=== PATIENT | female | born 1970 | race Two or more races ===

== ENCOUNTER 2018-12-08 22:54 | Emergency (ER) | payer MEDICAID ==
[~2018-12-08] VITALS: Ht 172.7 cm; Wt 86.2 kg
[2018-12-08 23:18] VITALS: BP 143/83
[2018-12-08] MEDS ORDERED: KETOROLAC TROMETHAMINE INJ 60 MG/2 ML VIAL IM ONE (23:41)
[2018-12-08] MEDS ORDERED: DEXAMETHASONE SOD PHOSPHATE 10 MG/ML VIAL ONE (23:41)
--- NOTE | 2018-12-08 23:51 | NUR ---
Patient discharged to home in stable condition. Written and verbal after care instructions given. Patient verbalizes understanding of instruction.
[2018-12-09] MEDS ORDERED: DEXAMETHASONE SOD PHOSPHATE 4 MG/ML VIAL IM ONE
[2018-12-09] MEDS ORDERED: KETOROLAC TROMETHAMINE INJ 60 MG/2 ML VIAL IM ONE
== END 2018-12-08 23:51 | disposition home or self-care (01) ==
LOC: ER 22:54
DX: R25.2 Cramp and spasm (principal); Z88.0 Allergy status to penicillin
CPT/HCPCS: 96372 ×2; 99283; J1100; J1885